=== PATIENT | male | born 1995 | race Caucasian/White ===

== ENCOUNTER 2017-02-28 14:49 | Emergency (ER) | payer SELFPAY ==
[2017-02-28 14:58] VITALS: BP 118/70; PULSE 80; RESP 20; TEMP 99; O2SAT 99
--- NOTE | 2017-02-28 15:25 | C.PDOC ---
History Of Present Illness 22-year-old male, presents to the ED w/ complaints of left ear pain x2 weeks. Patient states he was seen by someone and his ear was flushed, without relief. No discharge, sore throat or prior Hx of ear problems. Time Seen by Provider: 02/28/17 15:11 Chief Complaint (Nursing): ENT Problem History Per: Patient History/Exam Limitations: Language Barrier (friend translating) Onset/Duration Of Symptoms: Days Current Symptoms Are (Timing): Still Present Past Medical History Reviewed: Historical Data, Nursing Documentation, Vital Signs Vital Signs: Last Vital Signs Temp 99 F 02/28/17 14:54 Pulse 80 02/28/17 14:54 Resp 20 02/28/17 14:54 BP 118/70 02/28/17 14:54 Pulse Ox 99 02/28/17 16:49 - Medical History PMH: No Chronic Diseases Family History: States: No Known Family Hx - Social History Hx Tobacco Use: No Hx Alcohol Use: No Hx Substance Use: No Review Of Systems Except As Marked, All Systems Reviewed And Found Negative. Constitutional: Negative for: Fever ENT: Positive for: Ear Pain (LEFT). Negative for: Throat Swelling Respiratory: Negative for: Shortness of Breath Physical Exam - Physical Exam Appears: Non-toxic, No Acute Distress Skin: Warm, Dry, No Rash Eye(s): bilateral: Normal Inspection Ear(s): Left: Other (Swelling and exudates in canal), Right: Normal Nose: Normal Oral Mucosa: Moist Tongue: Normal Appearing Throat: Normal Neurological/Psych: Oriented x3, Normal Speech, Normal Cognition ED Course And Treatment O2 Sat by Pulse Oximetry: 99 Progress Note: Medicated for pain Medical Decision Making Medical Decision Making: s/s c/w otitis externa Plan oral and topical meds Clinic F/u Disposition - Disposition Referrals: [facility] at [facility] [Outside] Disposition: HOME/ ROUTINE Disposition Time: 15:22 Condition: GOOD Prescriptions: Ciprofloxacin [Cipro] 1 tab PO BID #14 tab Naproxen [Naprosyn] 1 tab PO BID PRN #25 tab PRN Reason: Pain Neomycin/Polymyxin/Hydrocort [Cortisporin Opht Susp] 2 drop OU QID #1 bottle Instructions: Otitis Externa (ED) - Clinical Impression Clinical Impression: Otitis externa - Scribe Statement The provider has reviewed the documentation as recorded by the Scribe Zunaira Tyree All medical record entries made by the Arvind were at my direction and personally dictated by me. I have reviewed the chart and agree that the record accurately reflects my personal performance of the history, physical exam, medical decision making, and the department course for this patient. I have also personally directed, reviewed, and agree with the discharge instructions and disposition.
[2017-02-28] MEDS ORDERED: Naproxen 550 mg Tab PO STA (15:31)
[2017-02-28] MEDS ORDERED: Naproxen 550 mg Tab PO ONE (15:36)
== END 2017-02-28 15:48 | disposition home or self-care (01) ==
LOC: C.ER 14:49
DX: H60.92 Unspecified otitis externa, left ear (principal)

== ENCOUNTER 2017-10-29 20:24 | Emergency (ER) | payer SELFPAY ==
[2017-10-29 20:40] VITALS: BP 134/74; RESP 20; O2SAT 100
--- NOTE | 2017-10-29 21:18 | C.PDOC ---
History Of Present Illness 22-year-old male, presents to the emergency department with complaints of a fever, cough, chills, and body aches for the past few days. Patient denies any sick contacts, recent trauma, rashes, nausea/vomiting, diarrhea, or any other associated symptoms. No other complaints at this time. Time Seen by Provider: 10/29/17 21:00 Chief Complaint (Nursing): Flu-like Symptoms History Per: Patient, Family History/Exam Limitations: no limitations Onset/Duration Of Symptoms: Days Current Symptoms Are (Timing): Still Present Past Medical History Reviewed: Historical Data, Nursing Documentation, Vital Signs Vital Signs: Last Vital Signs Temp 100.7 F H 10/29/17 20:33 Pulse 112 H 10/29/17 20:33 Resp 20 10/29/17 20:33 BP 134/74 10/29/17 20:33 Pulse Ox 100 10/29/17 21:46 Family History: States: No Known Family Hx - Social History Hx Tobacco Use: No Hx Alcohol Use: No Hx Substance Use: No - Immunization History Hx Tetanus Toxoid Vaccination: No Hx Influenza Vaccination: No Review Of Systems Constitutional: Positive for: Fever, Chills, Malaise ENT: Positive for: Throat Pain Cardiovascular: Negative for: Chest Pain Respiratory: Positive for: Cough. Negative for: Shortness of Breath Gastrointestinal: Negative for: Vomiting Musculoskeletal: Negative for: Neck Pain, Back Pain Neurological: Negative for: Weakness, Headache, Dizziness Physical Exam - Physical Exam Appears: Non-toxic, No Acute Distress Skin: Warm, Dry, No Rash Head: Atraumatic, Normacephalic Eye(s): bilateral: Normal Inspection, PERRL, EOMI Ear(s): Bilateral: Normal Nose: Normal Oral Mucosa: Moist Lips: Normal Appearing Throat: No Erythema, No Exudate Neck: Normal ROM, Supple Chest: Symmetrical, No Tenderness Cardiovascular: Rhythm Regular, No Friction Rub, No Murmur Respiratory: Normal Breath Sounds, No Accessory Muscle Use Gastrointestinal/Abdominal: Soft, No Tenderness Back: Normal Inspection, No CVA Tenderness Neurological/Psych: Oriented x3, Normal Speech, Normal Motor, Normal Sensation Gait: Steady ED Course And Treatment O2 Sat by Pulse Oximetry: 100 (on RA) Pulse Ox Interpretation: Normal Medical Decision Making Medical Decision Making: On re-exam, the patient is resting comfortably. Lungs are CTA, heart is RRR, abdomen is soft, non-tender and the patient is tolerating po well. Ambulatory in the ED with steady gait. Follow up with the medical doctor within 1-2 days. Return if worsened. Disposition - Disposition Referrals: [facility] at [facility] [Outside] Disposition: HOME/ ROUTINE Disposition Time: 21:46 Condition: GOOD Additional Instructions: Follow up with the medical doctor within 1-2 days. Return if worsened. Prescriptions: Ibuprofen [Motrin] 600 mg PO TID #21 tab Oseltamivir [Tamiflu] 75 mg PO BID #9 cap Instructions: Influenza (ED) Forms: [employer] ([place]) - Clinical Impression Clinical Impression: Influenza - Scribe Statement The provider has reviewed the documentation as recorded by the Scribe (Chaitanya Clements) All medical record entries made by the Scribe were at my direction and personally dictated by me. I have reviewed the chart and agree that the record accurately reflects my personal performance of the history, physical exam, medical decision making, and the department course for this patient. I have also personally directed, reviewed, and agree with the discharge instructions and disposition.
[2017-10-29 21:53] VITALS: PULSE 92; TEMP 99
== END 2017-10-29 21:52 | disposition home or self-care (01) ==
LOC: C.ER 20:24
DX: J11.1 Influenza due to unidentified influenza virus with other respiratory manifestations (principal)